=== PATIENT | female | born 1950 | race Caucasian/White ===

== ENCOUNTER 2017-01-03 21:48 | Emergency (ER) | payer BC ==
--- NOTE | 2017-01-03 22:44 | RAD ---
Indication: Right wrist injury. 3 views of the wrist demonstrates fracture of the distal radius with dorsal angulation. Likely fracture of the styloid process is also present. IMPRESSION: Fracture of the distal radius with dorsal angulation as well as the ulnar styloid process..
[2017-01-04 00:14] VITALS: BP 144/76
--- NOTE | 2017-01-04 00:26 | ED ---
Upper Extremity Pain - HPI Summary HPI Summary: Patient arrives to ED with CC of wrist pain after [place] of [place] [facility] [place] states she was able to board the plane after EMT's placed a board on her wrist and wrapped it. The right wrist has obvious deformity. She denies other pain. She denies finger or elbow pain. Pain is located on the dorsum of the wrist. There is mild ecchymosis surrounding. She does not recall how she landed on the wrist. She denies hitting head or LOC. NV exam WNL. Denies numbness, tingling or temperature changes. Patient is otherwise healthy and takes no medications. - History of Current Complaint Chief Complaint: EDExtremityUpper Stated Complaint: FALL/WRIST INJURY Time Seen by Provider: 01/03/17 23:14 Hx Obtained From: Patient Mechanism Of Injury: Fall From A Standing Position Onset/Duration: Started Hours Ago Timing: Constant Severity Initially: Mild Severity Currently: Mild Pain Location: Wrist Character: Sharp Aggravating Factor(s): Movement, Internal/External Rotation, Abduction, Adduction Alleviating Factor(s): Rest, Ice Associated Signs & Symptoms: Positive: Bruising Related History: Dominant Hand Right - Risk Factors Non-Orthopedic Risk Factor: Negative Septic Arthritis Risk Factor: Extremes of Age Compartment Syndrome Risk Factors: Pain - Allergies/Home Medications Allergies/Adverse Reactions: Allergies Allergy/AdvReac Type Severity Reaction Status Date / Time No Known Allergies Allergy Verified 01/03/17 23:45 PMH/Surg Hx/FS Hx/Imm Hx Previously Healthy: Yes Infectious Disease History: No Infectious Disease History: Denies: Traveled Outside the [place] in Last 30 Days - Social History Occupation: Unemployed Lives: With Family Alcohol Use: None Hx Substance Use: No Substance Use Type: Reports: None Hx Tobacco Use: No Smoking Status (MU): Never Smoked Tobacco Review of Systems Constitutional: Negative Cardiovascular: Negative Respiratory: Negative Gastrointestinal: Negative Positive: no symptoms reported, see HPI Positive: Arthralgia Positive: Bruising Neurological: Negative Psychological: Normal All Other Systems Reviewed And Are Negative: Yes Physical Exam Triage Information Reviewed: Yes Vital Signs On Initial Exam: Initial Vitals Temp Pulse Resp BP Pulse Ox 97.2 F 92 18 159/88 98 01/03/17 21:55 01/03/17 21:55 01/03/17 21:55 01/03/17 21:55 01/03/17 21:55 Completion Of Physical Exam Limited Due To: Dementia Appearance: Positive: Well-Appearing, No Pain Distress, Well-Nourished Skin: Positive: Warm, Skin Color Reflects Adequate Perfusion, Other - ecchymosis noted over dorsum of the wrist Head/Face: Positive: Normal Head/Face Inspection Eyes: Positive: EOMI, BASIM, Conjunctiva Clear Neck: Positive: Supple, No Lymphadenopathy Respiratory/Lung Sounds: Positive: Clear to Auscultation, Breath Sounds Present Cardiovascular: Positive: Normal, RRR, Pulses are Symmetrical in both Upper and Lower Extremities Musculoskeletal: Positive: Pain @ - dorsum of the wrist, ROM limited d/t pain and obvious deformity, Other Neurological: Positive: Sensory/Motor Intact, Alert, Oriented to Person Place, Time, Speech Normal Psychiatric: Positive: Normal AVPU Assessment: Alert Procedures - Splinting Hand-Made Type: fiberglass Splint: sugar-tong Pre-Proc Neuro Vasc Exam: normal Post-Proc Neuro Vasc Exam: normal Diagnostics - Vital Signs Vital Signs Temp Pulse Resp BP Pulse Ox 01/04/17 00:13 98 F 78 18 144/76 01/03/17 23:43 97.2 F 92 18 159/88 98 01/03/17 21:55 97.2 F 92 18 159/88 98 - Laboratory Lab Statement: Any lab studies that have been ordered have been reviewed, and results considered in the medical decision making process. Course/Dx - Course Course Of Treatment: Xray of wrist: IMPRESSION: Fracture of the distal radius with dorsal angulation as well as the ulnar styloid process.. Patient declines pain medicine. Patient placed in sugar tong splint with fiberglass. Follow up with Dr. Murphy this week. Patient tolerated procedure well and OK for discharge. NV exam ok, pulses intact biaterally +2. Denies numbness or tingling. - Diagnoses Differential Diagnosis/HQI/PQRI: Positive: Contusion, Fracture (Open), Fracture (Closed) Provider Diagnoses: Distal radius fracture Discharge - Discharge Plan Condition: Stable Disposition: HOME Patient Education Materials: Wrist Fracture in Adults (ED) Referrals: Keven Murphy MD [Medical Doctor] - No Primary Care Phys,NOPCP [Primary Care Provider] - Additional Instructions: Ibuprofen 600mg three times daily for pain Follow up with DR. Murphy's office this week. Call on Wednesday morning for an appt. Do not get the splint wet.
== END 2017-01-04 00:13 | disposition home or self-care (01) ==
LOC: ED 21:48
DX: S52.501A Unspecified fracture of the lower end of right radius, initial encounter for closed fracture (principal); V89.9XXA Person injured in unspecified vehicle accident, initial encounter; Y92.9 Unspecified place or not applicable; F03.90 Unspecified dementia, unspecified severity, without behavioral disturbance, psychotic disturbance, mood disturbance, and anxiety
CPT/HCPCS: 29125; 99281